=== PATIENT | female | born 1990 | race Hispanic/Latino ===

== ENCOUNTER 2017-10-13 16:26 | Emergency (ER) | payer OTHER ==
--- NOTE | 2017-10-13 18:15 | OBHP ---
Datetime: 10/13/2017 17:50 IP Adm Impression: Term, intrauterine ; No Active Labor IP Admit Plan: Discharge home Admit Comment, IP Provider: chief complaint-contractions HPI 26 y/o at 39.2 wga with c/o irregular cxt for alst vew days.patient denies vaginal bleedi ng or loss of fluid course uncomplicated as per patient PMH denies PSH denies OBGYN HX Social hx denies tobacco,alcohol or illcit drug use Exam see exam section A/P 26 y/o at 329.2 wga with c/o contractions.no active labor. -discharge home -discussed with dr casanova Pelvic Type - PN: Adequate Extremities - PN: Normal Abdomen - PN: Normal Back - PN: Normal Lungs - PN: Normal Heart - PN: Normal Neurologic - PN: Normal General - PN: Normal Contraction Comments Provider: occ Gestation - Est Wks by US: 39.2 EGA AdmitDate IP: 39.2 Vital Signs Provider: Reviewed IP Chief Complaint: Uterine contractions FHR Category Provider Fetus A: Category I Dilatation, Provider: ft Effacement, Provider: 30 Station, Provider: -3 DTRs - PN: Normal
[2017-10-13 23:12] VITALS: BP 133/74; PULSE 79; O2SAT 95
== END 2017-10-13 18:20 | disposition home or self-care (01) ==
LOC: C.EROB 16:26
DX: O47.1 False labor at or after 37 completed weeks of gestation (principal); Z3A.39 39 weeks gestation of pregnancy

== ENCOUNTER 2017-10-16 22:21 | Inpatient (IN) | payer OTHER ==
[2017-10-16 22:26] VITALS: BMI 33.5
[2017-10-16] MEDS ORDERED: Penicillin G 5 Million Unit Vial IVPB ONE (22:27)
[2017-10-16] MEDS ORDERED: Lactated Ringer's 1,000 ML IV SCH ×2 (22:30)
--- NOTE | 2017-10-16 23:07 | OBHP ---
Datetime: 10/16/2017 22:52 IP Adm Impression: Term, intrauterine ; No Active Labor IP Admit Plan: Admit to unit; Initiate labor induction protocol IP Admit Plan Other: cervical ripening Admit Comment, IP Provider: Antonio is a private patient of Dr. Xiomy Khan 26 y.o. , LMP 01/16/17, HELADIO 10/25/17, EGA 38w 5d c/o ctx since 1900 hours, pain scale 7/10. (+ ) AFM; denies LOF, VB. care: Dr. Xiomy Khan; noted for Holter monitoring due to anxiety attack. 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 Denies illicit drug or EtOH use. With fiance x 8 years. Fam Hx: Mother alive 45 y.o. HTN. Father alive 47 y.o. no med issues. P.E.: as above. Mildly obese in NAD. Awake, alert, oriented to time, person and place. Pleasant a nd cooperative. Accompanied by blake and her mother Assessment: 26 y.o. P0, 38w 5d, IOL - prolonged latent phase of labor. GBS (+) - for penicillin. Category 1 tracing. Clinically stable. Plan: 1) Admit 2) NPO 3) IVF 4) Continuous EFM 5) Admission labs 6) Cervidil 7) Penicillin 8) Pain meds, upon request 9) Anticipate vaginal delivery - as per Dr. Khan Pelvic Type - PN: Adequate Extremities - PN: Normal Abdomen - PN: Normal Back - PN: Normal Breast - PN: Not Done Lungs - PN: Normal Heart - PN: Normal Thyroid - PN: Not Done Neurologic - PN: Normal HEENT - PN: Normal General - PN: Normal Presentation-Admit: Vertex FHR - Baseline A Provider: 150 Comments, ACOG Physical Exam: Abdomen: Soft. Non tender. Fundal height 39 cm All other systems reviewed and are negative Gestation - Est Wks by US: 38w 5d IP Hx Assessment: The History has been Reviewed and is Current EGA AdmitDate IP: 38.5 IP Chief Complaint: Uterine contractions NICHD Variability Prov Fetus A: Moderate 6-25bpm NICHD Accel Fetus A IP Provider: 15X15 FHR Category Provider Fetus A: Category I NICHD Decel Fetus A IP Provider: None Dilatation, Provider: FT Effacement, Provider: 30 Station, Provider: -3 Genitourinary Exam: Normal DTRs - PN: Not Done
--- NOTE | 2017-10-16 23:13 | OBPN ---
Datetime: 10/16/2017 23:09 IP Progress Plan: Continue present management; Cervical Ripening Contraction Comments Provider: occasional IP Progress Note Comment: Cervidil placed in posterior vaginal vault at 2246 hours Plan: 1) as above. Dilatation, Provider: FT Effacement, Provider: 30 Station, Provider: -3 Datetime: 10/16/2017 22:52 FHR - Baseline A Provider: 150 Gestation - Est Wks by US: 38w 5d Presentation-Admit: Vertex NICHD Accel Fetus A IP Provider: 15X15 FHR Category Provider Fetus A: Category I NICHD Variability Prov Fetus A: Moderate 6-25bpm NICHD Decel Fetus A IP Provider: None Datetime: 10/13/2017 17:50 Vital Signs Provider: Reviewed
[2017-10-16] MEDS ORDERED: Nalbuphine 20 mg/ml Inj (1 ml) IVP PRN (23:15)
[2017-10-16 23:26] LABS: BASO # 0.1 K/uL (0.0-0.2); BASO % 0.4 % (0.0-2.0); EOS # 0.2 K/uL (0.0-0.7); HEMATOCRIT 36.6 % (34.0-47.0); LYMPH # 4.5 K/uL (1.0-4.3); LYMPH % 23.9 % (20.0-40.0); MEAN CELL VOLUME 87.2 fL (81.0-99.0); MEAN CORPUSCULAR HEMOGLOBIN 30.5 pg (27.0-31.0); MEAN PLATELET VOLUME 8.5 fL (7.2-11.7); MONO # 1.1 K/uL (0.0-0.8); MONO % 5.9 % (0.0-10.0); NRBC % 0.1 % (0.0-2.0); RED CELL DISTRIBUTION WIDTH 13.3 % (11.5-14.5); WHITE BLOOD COUNT 18.8 K/uL (4.8-10.8)
[2017-10-16 23:34] LABS: RBC URINE 2 /hpf (0-3); URINE BACTERIA OCC (<OCC); URINE BILIRUBIN NEGATIVE (NEGATIVE); URINE BLOOD NEGATIVE (NEGATIVE); URINE COLOR Yellow (YELLOW); URINE GLUCOSE (UA) NORMAL (Normal); URINE KETONE TRACE mg/dL (NEGATIVE); URINE PROTEIN NEGATIVE (NEGATIVE); URINE UROBILINOGEN NORMAL mg/dL (0.2-1.0); WBC URINE 12 /hpf (0-5)
[2017-10-16 23:35] LABS: URINE LEUKOCYTE ESTERASE 1+ Leu/uL (Negative)
[2017-10-16 23:42] LABS: ALKALINE PHOSPHATASE 127 U/L (38-126); ALT/SGPT 18 U/L (9-52); AST/SGOT 16 U/L (14-36); BILIRUBIN,TOTAL 0.3 mg/dL (0.2-1.3); BLOOD UREA NITROGEN 7 mg/dL (7-17); CALCIUM 9.3 mg/dl (8.6-10.4); CARBON DIOXIDE 21 mmol/L (22-30); CHLORIDE 100 mmol/L (98-107); GFR AFRICAN-AMERICAN > 60; GLUCOSE,RANDOM 90 mg/dL (65-105); POTASSIUM 3.9 mmol/L (3.6-5.2); SODIUM 129 mmol/L (132-148); TOTAL PROTEIN 7.7 g/dL (6.3-8.3)
[2017-10-17] MEDS ORDERED: Penicillin G Potassium 2.5 MU in Sodium Chloride 0.9% 100 ML IV SCH (03:00)
[2017-10-17] MEDS ORDERED: Nalbuphine 20 mg/ml Inj (1 ml) ONE (03:52)
[2017-10-17] MEDS ORDERED: Promethazine 25 MG in Sodium Chloride 0.9% 100 ML IV ONE (04:00)
[2017-10-17] MEDS ORDERED: Oxytocin 30 UNIT 30 UNITS/500 ML BAG IV SCH (11:30)
--- NOTE | 2017-10-17 11:59 | OBPN ---
Datetime: 10/17/2017 11:31 IP Progress Impression: Normal progression of labor IP Progress Plan: Continue present management Membranes, Provider: Intact Contraction Comments Provider: irregular FHR - Baseline A Provider: 135 Gestation - Est Wks by US: 38.6 Presentation-Admit: Vertex IP Progress Note Comment: pt seen and examined and reports pain toleratble, does not desire any pain medicaion. pt denies any lof, vb, +FM VSS EFM: Maricruz I TOCO: irregular A/P @ 38.6 wks GA iol for oligohyraminoas -pitocoin 12:30pm -pain manamgnet prn Vital Signs Provider: Reviewed; Within Normal Limits FHR Category Provider Fetus A: Category I NICHD Variability Prov Fetus A: Moderate 6-25bpm Dilatation, Provider: 1 Effacement, Provider: 0 Station, Provider: -3 NICHD Decel Fetus A IP Provider: None
[2017-10-17] MEDS ORDERED: Oxytocin 30 UNIT 30 UNITS/500 ML BAG IV ONE (12:43)
[2017-10-17] MEDS ORDERED: Bupivacaine HCl 0.25% PF (10 ml) Inj ONE (15:03)
[2017-10-17] MEDS ORDERED: Bupivacaine 0.125%/FentaNYL 200 ML EPI ONE (15:03)
--- NOTE | 2017-10-17 16:03 | OBPN ---
Datetime: 10/17/2017 15:59 IP Progress Impression: Normal progression of labor; Rupture of membranes IP Progress Plan: Continue present management Membranes, Provider: Ruptured Amniotic Fluid Color, Provider: Clear Contraction Comments Provider: irregular FHR - Baseline A Provider: 125 Gestation - Est Wks by US: 38.6 Presentation-Admit: Vertex IP Progress Note Comment: pt seen and examien ds/p epiudral with variable decerlations improved with left lateral decubutius positin, oxygen, d/c pit pt with SROM lclear fluid s/p epidural VS see aobve V:E /-3 VTX srom, clear A/P @ 38.6 wks GA IOL oligohyramniso -cont current manamgnet FHR Category Provider Fetus A: Category I NICHD Variability Prov Fetus A: Moderate 6-25bpm Dilatation, Provider: 1 Effacement, Provider: 50 Station, Provider: -3 NICHD Decel Fetus A IP Provider: None
[2017-10-17] MEDS ORDERED: Sodium Citrate/Citric Acid 15 ml Sol ONE (18:24)
[2017-10-17] MEDS ORDERED: Oxytocin 20 units in LR 2,000 ML IV ONE (18:28)
--- NOTE | 2017-10-17 18:29 | OBPN ---
Datetime: 10/17/2017 18:26 IP Progress Impression: Reassuring heart rate IP Progress Plan: Deliver- Section IP Progress Note Comment: pt with recurrent decelerations, no improved with pitcoin off, left and ri ght lateral decubituus postion, IVH, Oxygen R/b/a/i of PLTCS dw patietn not lmtied to bleeding, infection, injury to bowel bladder or toehr co rgns consent signed pt to OR for PTLCS or /anesthsia aware ancef abdominal prep bonner to gravity scds Vital Signs Provider: Reviewed Dilatation, Provider: 1 Effacement, Provider: 50 Station, Provider: -3
[2017-10-17] MEDS ORDERED: ceFAZolin IV 2 gm in Dextrose 2 GM/50 ML BAG IVPB ONE (18:30)
[2017-10-17] MEDS ORDERED: Oxytocin 10 Units/ml Inj ONE (18:50)
[2017-10-17] MEDS ORDERED: Morphine 1 mg/ml preservative-free Inj(Duramorph) ONE (18:55)
[2017-10-17] MEDS ORDERED: Oxycodone/Acetaminophen 5/325 mg Tab PO PRN (19:20)
--- NOTE | 2017-10-17 19:21 | OBDS ---
DELIVERY PERSONNEL Delivery Doctor: Randy Khan MD Rate And Cost Analyst: Lainey Gaytan RN Anesthesiologist: kassie MATERNAL INFORMATION Delivery Anesthesia: Epidural Medications in Delivery: hemobate, morphine, pitocin Estimated Blood Loss (ml): 700 Placenta Cultured: No Maternal Complications: None RN Comments: per dr fernando request, 10mg of morphine to be retrieved from [facility], he was unable to retri isreal from or [facility], hemobate given to dr fernando, he injected pt with 250mic im Provider Comments: PLTCS live male infant nuchal x 1 tight reduced normal appearint uterus tubes and ovaries b/l ebl 700ml apar 9,9 weight of 6lb[address] ounces Dr Giovanni vigil was surgical assistnat LABOR SUMMARY EDC: 10/25/2017 00:00 No. Babies in Womb: 1 Attempted: No Labor Anesthesia: Epidural LABOR INFORMATION Cervical Ripening Agents: Cervidil Oxytocin: Induction Group B Beta Strep: Positive Antibiotics # of Doses: 2 Antibiotics Time of Last Dose: 333am Steroids Given: None Reason Steroids Not Administered: Not Applicable MEMBRANES Membranes Rupture Method: Spontaneous Rupture of Membranes: 10/17/2017 15:15 Length of Rupture (hrs): 3.47 Amniotic Fluid Color: Clear Amniotic Fluid Amount: Small Amniotic Fluid Odor: Normal STAGES OF LABOR Stage 3 hrs: 0 Stage 3 min: 2 CSECTION DELIVERY Primary Indication: Nonreassuring Status Secondary Indication: Failed Induction CSection Urgency: Emergency CSection Incidence: Primary Labor: Labor Elective: Nonelective CSection Incision: Lower Uterine Transverse BABY A INFORMATION Delivery Date/Time: 10/17/2017 18:43 Method of Delivery: Born in Route : No : N/A SHOULDER DYSTOCIA BABY A Delivery Date/Time: 10/17/2017 18:43 PRESENTATION/POSITION BABY A Presentation: Cephalic Cephalic Presentation: Vertex PLACENTA INFORMATION BABY A Placenta Delivery Time : 10/17/2017 18:45 Placenta Method of Delivery: Manual Removal Placenta Status: Delivered SCORES BABY A Heart Rate 1 min: >100 bpm Resp Effort 1 min: Good Cry Reflex Irritability 1 min: Cough or Sneeze or Pulls Away Muscle Tone 1 min: Active Motion Color 1 min: Body [place], Extremities Blue Resuscitation Effort 1 min: Tactile Stimulation SCORE 1 MIN: 9 Heart Rate 5 min: >100 bpm Resp Effort 5 min: Good Cry Reflex Irritability 5 min: Cough or Sneeze or Pulls Away Muscle Tone 5 min: Active Motion Color 5 min: Body [place], Extremities Blue SCORE 5 MIN: 9 INFANT INFORMATION BABY A Gestational Age at Delivery: 38.6 Gestational Status: Term Infant Outcome : Liveborn Condition : Stable Infant Sex: Male IDENTIFICATION/MEDS BABY A ID Band Number: [id number] ID Band Location: Left Leg; Left Arm Sensor Applied: Yes Sensor Number: [id number] Sensor Location : Cord Clamp WEIGHT/LENGTH BABY A Birthweight (gms): 2840 Weight (lb): 6 Weight (oz): 4 Infant Length Inches: 18.25 Length cms: 46.4 CORD INFORMATION BABY A No. Cord Vessels: 3 Nuchal Cord : Around Neck x1, Tight Cord Blood Taken: Yes Suction: Mouth; Nose
--- NOTE | 2017-10-17 19:26 | PCM.SURG1 ---
Surgeon's Initial Post Op Note - Surgeon's Notes Surgeon: Xiomy Khan MD Heating And Ventilating Tender: Giovanni Leiva MD Type of Anesthesia: Other Anesthesia Administered By: Epidural Dr Tucker Pre-Operative Diagnosis: Term intrauterine , Non reassuring heart tracing, remote from delivery Operative Findings: live male infant cephalic presentatin, tight nuchal x 1 reduced, apgars 9,9 weight of 6lbs 4ounces. normal appearing uterus tubes and ovaries b/l. Geospatial Systems Integrator present for delivery. Dr Giovanni Leiva was surgical rn and present for entire case and essential in gaining entry , retraction, expsoure, obtaiing hemoatsis, holding bladder blade, helping to deliver , closing all layers. Post-Operative Diagnosis: same as above Operation Performed: Primary Low transverse Cesearean section Specimen/Specimens Removed: placenta Estimated Blood Loss: EBL {In ML}: 700 Blood Products Given: N/A Drains Used: No Drains Post-Op Condition: Good Date of Surgery/Procedure: 10/17/17 Time of Surgery/Procedure: 18:00
[2017-10-17] MEDS ORDERED: Oxycodone/Acetaminophen 5/325 mg Tab ONE (21:40)
[2017-10-17] MEDS: Simethicone 80 mg Chewtab PO SCH (22:48)
[2017-10-18] MEDS: Oxycodone/Acetaminophen 5/325 mg Tab PO PRN ×3 (01:56→17:51)
--- NOTE | 2017-10-18 05:50 | OP ---
PROCEDURE DATE: 10/17/2017 SURGEON: Xiomy Khan MD BANKING TEACHER: Giovanni Leiva MD TYPE OF ANESTHESIA: Epidural. PREOPERATIVE DIAGNOSES: Term intrauterine ,non-reassuring heart rate tracing, remote from delivery. OPERATIVE FINDINGS: Live male , cephalic presentation, tight nuchal cord x1 reduced, Apgars 9 and 9, weight is 6 pounds, 4 ounces, normal appearing uterus, tubes, and ovaries bilaterally. Roll Tester present for delivery. Dr. Giovanni Leiva was the surgical rn, was present for the entire case and essential in gaining, entry, retraction, exposure, holding the bladder blade, obtaining hemostasis, closing all layers, and was present the entire case. POSTOPERATIVE DIAGNOSES: Term intrauterine ,non-reassuring heart rate tracing remote from delivery. OPERATION PERFORMED: Primary low transverse section. SPECIMEN REMOVED: Placenta. ESTIMATED BLOOD LOSS: 700 mL. BLOOD PRODUCTS: None. COMPLICATIONS: None. DESCRIPTION OF PROCEDURE: The patient is a G1, P0 at 38.6 weeks induction of labor for that was noted to have non-reassuring heart rate tracing with persistent decelerations, unimproved. Risks, benefits, alternatives, indications of primary low transverse section was discussed with the patient. Consent was signed and the patient was transferred to the operating room, anesthesia was found to be adequate, she was placed on the operating table in dorsal supine position. The patient was then prepped and draped in usual sterile fashion. A time-out was confirmed correct patient and correct procedure. The patient was given preoperative prophylactic antibiotic. Pfannenstiel skin incision was made with scalpel and carried down to the underlying fascia with the Bovie. Incision was extended laterally bluntly. The rectus muscles then bluntly in the midline. Peritoneum identified in a clear space. Incision was extended laterally and superiorly until there was good visualization of the bladder. The lower end of the Wideman was then inserted. The lower uterine segment was incised in a transverse fashion. The uterine incision was extended laterally bluntly. The surgeon's hand entered the uterine cavity, and the infant's head was delivered atraumatically. There was a tight nuchal cord x1 that was reduced, followed by delivery of the shoulder followed by the body. Both oral and nasal passages of the baby were bulb suctioned. The umbilical cord was clamped and cut, and the baby was handed off to the awaiting consumer insights intern. Cord blood and cord gases were collected and sent x2. The placenta was then delivered manually. The uterus was exteriorized and cleared off all clots and debris and the uterine incision was repaired with 0-Vicryl in a running continuous locked fashion. A second layer of the same suture was used to close the uterus in a running imbricated manner. There was normal tubes and ovaries. The uterus was then returned into the abdomen. Paracolic gutters were cleared off clots and debris. The peritoneum was reapproximated and closed with 2-0 chromic in a running continuous fashion. The rectus was reapproximated and closed with 2-0 chromic in an interrupted manner and the fascia was re-approximated and closed with 0 Vicryl in a running continuous fashion. The subcutaneous layer was closed with 2-0 plain in an interrupted manner and the skin was reapproximated and closed with 4-0 Monocryl in a running subcuticular fashion. At the end of the procedure, all needle, sponge, and instrument counts were noted to be correct x2. The patient tolerated the procedure well and was transferred to the recovery room in stable condition. Xiomy Khan MD
--- NOTE | 2017-10-18 06:24 | OBPPN ---
Datetime: 10/18/2017 06:19 PP Pain Prov: Within normal limits PP Nausea Prov: Denies PP Flatus Prov: No PP BM Prov: No PP Breasts Prov: Normal PP Heart Prov: Normal PP Lungs Prov: Normal PP Abdomen/Uterus Prov: Normal PP Lochia Prov: Normal PP Vulva/Perineum Prov: Normal PP CVA Tenderness Prov: Normal PP Extremities Prov: Normal PP C/S Incision Prov: Normal PP Progress Prov: Normal PP Impression Prov: Normal progression PP Plan Prov: Continue present management PP Progress Note Prov: Pt seen an dexamiend and reports pain is controlled with medication. pt not y et ambuating , voiding, passing flatus, tolerating liquid diet, breast feeding. pt denies any fevers, chills, nause, vomiting, cp, sob. VSS PE: GEN NAD, AA ox 3 BREAST: non engorged b/l, non tender b/l RESP: CTAB?l CVS: RRR, +S1/S2 ABD: soft, appropriately TTP over incsin, no guarding, no reboud tenderness, no rigidity, +BS INCSIOPN C/D/I FUNDUS: Firm, at level of umbilucs, non tender VE: moderate lochia, non foul smelling EXT: No calf tenderness, ngetive emelina's sign b/l A/P s/p PLTCS POD #1 doing well -Pain managment: perocoet/motrin -advance diet as tolerated to regular -abdominal binder, incentive spirometr -activity as tolerated, out of bed in am, assistance with ambuation -bowel regimen -f/u AM labs Vital Signs Provider PP: Reviewed; Within Normal Limits
[2017-10-18 07:55] LABS: BASO # 0.1 K/uL (0.0-0.2); BASO % 0.4 % (0.0-2.0); EOS # 0.1 K/uL (0.0-0.7); MEAN CELL VOLUME 87.5 fL (81.0-99.0); MONO # 1.1 K/uL (0.0-0.8); WHITE BLOOD COUNT 15.8 K/uL (4.8-10.8)
[2017-10-18 08:05] LABS: EOS % 0.8 % (0.0-4.0); HEMATOCRIT 30.3 % (34.0-47.0); LYMPH # 2.6 K/uL (1.0-4.3); LYMPH % 16.7 % (20.0-40.0); MEAN CORPUSCULAR HEMOGLOBIN 30.3 pg (27.0-31.0); MEAN CORPUSCULAR HGB CONC 34.7 g/dL (33.0-37.0); MEAN PLATELET VOLUME 8.3 fL (7.2-11.7); MONO % 6.8 % (0.0-10.0); RED CELL DISTRIBUTION WIDTH 13.1 % (11.5-14.5)
[2017-10-18 08:27] LABS: BLOOD UREA NITROGEN 5 mg/dL (7-17); CALCIUM 8.3 mg/dl (8.6-10.4); CARBON DIOXIDE 26 mmol/L (22-30); CHLORIDE 99 mmol/L (98-107); GFR AFRICAN-AMERICAN > 60; GLUCOSE,RANDOM 70 mg/dL (65-105); POTASSIUM 3.7 mmol/L (3.6-5.2); SODIUM 128 mmol/L (132-148)
[2017-10-18] MEDS: Simethicone 80 mg Chewtab PO SCH ×4 (09:07→21:48)
[2017-10-18] MEDS: Prenatal Multivit/Folic Acid/Iron Tab PO SCH (09:12)
[2017-10-18 17:24] VITALS: PULSE 90
[2017-10-18] MEDS ORDERED: Bisacodyl 5mg EC Tab PO ONE (20:30)
[2017-10-19] MEDS: Oxycodone/Acetaminophen 5/325 mg Tab PO PRN ×2 (04:26→09:42)
[2017-10-19 09:36] VITALS: BP 115/72; RESP 18; TEMP 98.1; O2SAT 98
[2017-10-19] MEDS: Prenatal Multivit/Folic Acid/Iron Tab PO SCH (09:46)
[2017-10-19] MEDS: Simethicone 80 mg Chewtab PO SCH (09:46)
[2017-10-19] MEDS ORDERED: Influenza Vaccine 60 mcg/0.5 mL SYR (4YR UP) IM ONE (10:00)
== END 2017-10-19 11:50 | disposition home or self-care (01) | DRG 766 ==
LOC: C.EROB 22:21 → C.4D 22:27 → UNDOADMIN 22:27 → C.4D 22:40 → EEVIPCON 22:40 → C.4M 10-17 22:28
PROVIDERS: ADMIT Obstetrics & Gynecology; ATTEND Obstetrics & Gynecology
PROC: 10D00Z1 Extraction of Products of Conception, Low, Open Approach (ICD-10-PCS; principal; 2017-10-17)
PROC: 3E0P7VZ Introduction of Hormone into Female Reproductive, Via Natural or Artificial Opening (ICD-10-PCS; 2017-10-17)
DX: O76 Abnormality in fetal heart rate and rhythm complicating labor and delivery (principal); O61.9 Failed induction of labor, unspecified; F17.210 Nicotine dependence, cigarettes, uncomplicated; O63.0 Prolonged first stage (of labor); O69.1XX0 Labor and delivery complicated by cord around neck, with compression, not applicable or unspecified; Z37.0 Single live birth; O99.344 Other mental disorders complicating childbirth; O99.824 Streptococcus B carrier state complicating childbirth; O99.334 Smoking (tobacco) complicating childbirth; Z3A.38 38 weeks gestation of pregnancy; Z82.49 Family history of ischemic heart disease and other diseases of the circulatory system; F31.9 Bipolar disorder, unspecified; F41.1 Generalized anxiety disorder

== ENCOUNTER 2018-12-28 12:39 | Day surgery (SDC) | payer BC, MEDICAID ==
[2018-12-28 12:49] VITALS: BMI 30.7
[2018-12-28] MEDS ORDERED: HYDROmorphone 0.5 mg/0.5 ml ISec IVP PRN ×2 (14:50→14:51)
[2018-12-28] MEDS ORDERED: Oxytocin 10 Units/ml Inj ONE (16:28)
[2018-12-28] MEDS ORDERED: Midazolam 2 MG/2 ML VIAL ONE (16:28)
[2018-12-28] MEDS ORDERED: Doxycycline 100 mg Inj ONE (16:28)
[2018-12-28] MEDS ORDERED: Propofol 10 mg/ml Inj (20 ML) ONE (16:28)
[2018-12-28] MEDS ORDERED: Lactated Ringer's 1,000 ML IV ONE (16:54)
[2018-12-28] MEDS ORDERED: Lactated Ringer's 500 ML IV ONE (17:40)
[2018-12-28 17:51] VITALS: RESP 18
[2018-12-28 18:01] VITALS: O2SAT 99
[2018-12-28 18:26] VITALS: BP 111/57; PULSE 82; TEMP 97.6
--- NOTE | 2018-12-29 03:21 | OP ---
PROCEDURE DATE: 12/28/2018 ATTENDING SURGEON: Xiomy Khan MD KNITTING MACHINE OPERATOR HELPER: None. ANESTHESIA: General LMA. PREOPERATIVE DIAGNOSIS: Incomplete . POSTOPERATIVE DIAGNOSIS: Incomplete . PROCEDURE PERFORMED: Suction dilatation and curettage, first trimester. OPERATIVE FINDINGS: Anteverted 8-week size uterus, cervical stenosis, moderate products of conception noted to be 1 cm dilated, 8 mm curved suction curette used. The uterus was 8-10 weeks anteverted. ESTIMATED BLOOD LOSS: 5 mL. BLOOD PRODUCTS: None. COMPLICATIONS: None. DESCRIPTION OF PROCEDURE: The patient was taken to the operating room where she was given general anesthesia. Once it was found to be adequate, she was placed on the operating table in the dorsal supine position. The patient was prepped and draped in the usual sterile fashion. A time-out was performed confirming correct patient and correct procedure. Bimanual exam was performed for the above-mentioned finding. Sanches retractor was placed in the anterior and posterior fornix of the vagina. The cervix was adequately visualized. A single-tooth tenaculum was placed in the anterior lip of the cervix. The cervix was sequentially dilated. An 8-mm suction curette was advanced through the fundus. Suction was then activated and rotated at 360 degrees until all products were removed. The suction curette was then removed. Gentle curettage was then done. The suction curette was then activated and rotated at 360 degrees until air bubbles were noted in the curette. All products have been removed. Tenaculum was removed. There was good hemostasis noted. At the end of the procedure, all needle, sponge, and instrument counts were noted to be correct x2. The patient tolerated the procedure well and was transferred to the recovery room in stable condition. Xiomy Khan MD
== END 2018-12-28 18:20 | disposition home or self-care (01) ==
LOC: C.SDS 12:39
PROVIDERS: ATTEND Obstetrics & Gynecology
DX: O03.4 Incomplete spontaneous abortion without complication (principal); O34.41 Maternal care for other abnormalities of cervix, first trimester; N88.2 Stricture and stenosis of cervix uteri; Z3A.08 8 weeks gestation of pregnancy
CPT/HCPCS: 59812; 88305; J1885; J2250; J2405; J2704; J3010; J7120